=== PATIENT | female | born 1955 | race Caucasian/White ===

== ENCOUNTER 2023-02-04 12:25 | Inpatient (IN) | payer MEDICARE, MEDICAID ==
[2023-02-04] MEDS ORDERED: Dextrose 50% Abboject 50 ML SYRINGE ONE (12:49)
[2023-02-04] MEDS ORDERED: Cefepime 2 GM VIAL ONE (12:49)
[2023-02-04 13:07] LABS: Actual Bicarbonate (HCO3v) 23.5 mEq/L (22-28); Analyzer IN Cardio ER; Base Excess 1.2 mEq/L (-2.0 to +3.0); Calcium, Ionized (venous) 0.93 mmol/L (1.16-1.32); Chloride (VBG) 103 mmol/L (98-106); Hematocrit-VBG 37 % (36.0-47.0); Hemoglobin (Hb) 12.6 g/dL (11.7-16.1); Sodium 133.3 mmol/L (133-146); pH (venous) 7.509 (7.32-7.43)
[2023-02-04 13:34] LABS: Bacteria/HPF 2+ HPF (None Seen); Bilirubin Negative (Negative); Blood, Urine 2+ (Negative); CAUTI Indications for Culture Alt mental st,lethar; Clarity Turbid (Clear); Glucose, Urine (Dipstick) Normal (Negative); Ketone, Urine Negative (Negative); Leukocyte 500 Leu/uL (Negative); Nitrite Negative (Negative); Protein, Urine (Dipstick) 70 mg/dL (Neg-Trace); Specific Gravity, Urine 1.024 (1.002-1.036); Squamous Epithelial 0-3 HPF (0-3); Transitional Epithelial 0-3 HPF (None Seen); WBC/HPF Greater than 50 HPF (0-3); pH, Urine 6.5 (5.0-9.0)
[2023-02-04 13:41] LABS: Troponin I Less than 0.010 ng/mL (< 0.028)
[2023-02-04] MEDS ORDERED: Piperacillin/Tazobactam 3.375 GM VIAL ONE (13:44)
[2023-02-04 13:51] LABS: ALT (SGPT) 23 U/L (8-55); AST (SGOT) 31 U/L (5-34); Albumin 3.1 g/dL (3.4-4.8); Alkaline Phosphatase 67 U/L (40-110); Anion Gap 14 mmol/L (10-20); BUN (Urea Nitrogen) 30 mg/dL (9.8-20.1); Bilirubin, Total 0.4 mg/dL (0.2-1.2); Calc. Creatinine Clearance 0 mL/min (70-130); Carbon Dioxide 21 mmol/L (23-31); Chloride 105 mmol/L (98-107); Estimated GFR 94; Globulin 2.5 g/dL (2.4-3.5); Glucose 80 mg/dL (80-115); Lipase 4 U/L (8-78); Protein, Total 5.6 g/dL (5.8-8.1); Sodium 136 mmol/L (136-145)
[2023-02-04 14:04] LABS: SARS-CoV-2 NAA Rapid Test DETECTED (NotDetected)
[2023-02-04 14:04] LABS: Urine Culture Reflex Yes Yes
[2023-02-04] MEDS ORDERED: VANCOMYCIN 1.25 GM/250 ML BAG 1.25 GM in Premix Bag 1 BAG IVPB SCH (14:15)
[2023-02-04] MEDS ORDERED: Vancomycin 1.5 GRAM/300 ML BAG 1.5 GM in Premix Bag 1 BAG IVPB SCH (14:15)
[2023-02-04 15:11] LABS: #Monocytes 0.7 thou/uL (0.11-0.59); #Neutrophils 4.1 thou/uL (1.40-6.50); %Basophils 0.6 % (0.0-1.0); %Eosinophils 0.2 % (0.0-10.0); %Neutrophils 62.9 % (42.0-75.0); Hematocrit 33.9 % (36.0-47.0); Hemoglobin 10.8 g/dL (12.0-16.0); Mean Corpuscular HGB CONC 31.9 g/dL (32.0-36.0); Mean Corpuscular Hemoglobin 30.4 pg (27.0-31.0); Mean Corpuscular Volume 95.5 fl (78.0-98.0); Mean Platelet Volume 10.6 fL (7.4-10.4); Platelet Count 110 10x3/uL (130-400); RBC Distribution Width 13.2 % (11.5-14.5); Red Blood Cell (RBC) Count 3.55 mill/uL (4.20-5.40); White Blood Cell (WBC) Count 6.5 10x3/uL (4.8-10.8)
[2023-02-04] MEDS ORDERED: traMADol HCl 50 MG TAB PO PRN (15:12)
[2023-02-04] MEDS ORDERED: Ondansetron PF 4 MG/2 ML Vial IVP PRN ×2 (15:14→15:15)
[2023-02-04] MEDS ORDERED: Acetaminophen 650 MG Suppository PR PRN (15:14)
[2023-02-04] MEDS ORDERED: Acetaminophen 325 MG TAB PO PRN ×2 (15:14→15:15)
[2023-02-04] MEDS ORDERED: Ondansetron ODT 4 MG TAB SL PRN (15:15)
[2023-02-04] MEDS ORDERED: Dexamethasone 20 MG/5 ML VIAL SLOW IVP SCH (15:45)
[2023-02-04] MEDS ORDERED: Ascorbic Acid 500 mg Chewable Tablet PO SCH (15:45)
[2023-02-04] MEDS ORDERED: Azithromycin 500 MG in Sodium Chloride 0.9% 250 ML 250 ML IVPB SCH (17:15)
[2023-02-04] MEDS ORDERED: Dexamethasone 4 mg/ml Vial SLOW IVP SCH (17:30)
[2023-02-04 17:45] LABS: INR-International Normal Ratio 1.1; PTT 33.5 sec (22.9-36.1); Prothrombin Time 14.8 sec (12.0-14.7)
[2023-02-04] MEDS: Sodium Chloride 0.9% 1,000 ML IV SCH (18:05)
[2023-02-04] MEDS: Azithromycin 500 MG in Sodium Chloride 0.9% 250 ML 250 ML IVPB SCH (18:06)
[2023-02-04] MEDS: traMADol HCl 50 MG TAB PO SCH (18:06)
[2023-02-04] MEDS ORDERED: clonazePAM 1 MG TAB PO SCH (21:00)
[2023-02-04] MEDS ORDERED: Divalproex Sodium 125 mg Sprinkle Capsule PO SCH (21:00)
[2023-02-04] MEDS ORDERED: Haloperidol Lactate 2 MG/ML UDCUP PO SCH (21:00)
[2023-02-04] MEDS: cefTRIAXone\\ROCEPHIN 1 GM in Sodium Chloride 0.9% 100 ML IVPB SCH (21:17)
[2023-02-04] MEDS: Cholecalciferol 1,000 UNITS (25 MCG) TAB PO SCH (21:18)
[2023-02-04] MEDS: Pramipexole Di-HCl 1 MG TAB PO SCH (21:18)
[2023-02-05] MEDS: traMADol HCl 50 MG TAB PO SCH ×4 (01:02→17:16)
[2023-02-05] MEDS ORDERED: Sterile Water 10 ML VIAL FS PRN (02:45)
[2023-02-05] MEDS ORDERED: OLANZapine 10 MG VIAL IM SCH ×2 (03:00)
[2023-02-05] MEDS: Sodium Chloride 0.9% 1,000 ML IV SCH ×2 (03:19→16:19)
[2023-02-05] MEDS: Pramipexole Di-HCl 1 MG TAB PO SCH ×4 (08:09→21:11)
[2023-02-05] MEDS: Ascorbic Acid 500 mg Chewable Tablet PO SCH ×2 (08:09→08:18)
[2023-02-05] MEDS: Zinc Sulfate 220 MG CAP PO SCH ×2 (08:10→08:18)
[2023-02-05] MEDS: Dexamethasone 4 mg/ml Vial SLOW IVP SCH (08:19)
[2023-02-05 11:03] LABS: #Monocytes 0.5 thou/uL (0.11-0.59); %Basophils 0.2 % (0.0-1.0); %Lymphocytes 13.7 % (21.0-51.0); %Monocytes 9.4 % (0.0-10.0); %Neutrophils 76.3 % (42.0-75.0); Hematocrit 35.3 % (36.0-47.0); Hemoglobin 11.5 g/dL (12.0-16.0); Mean Corpuscular HGB CONC 32.6 g/dL (32.0-36.0); Mean Corpuscular Hemoglobin 30.4 pg (27.0-31.0); Mean Corpuscular Volume 93.4 fl (78.0-98.0); Mean Platelet Volume 10.9 fL (7.4-10.4); Platelet Count 112 10x3/uL (130-400); RBC Distribution Width 12.7 % (11.5-14.5); Red Blood Cell (RBC) Count 3.78 mill/uL (4.20-5.40); White Blood Cell (WBC) Count 5.2 10x3/uL (4.8-10.8)
[2023-02-05 11:52] LABS: Anion Gap 12 mmol/L (10-20); BUN (Urea Nitrogen) 12 mg/dL (9.8-20.1); Calc. Creatinine Clearance 95 mL/min (70-130); Calcium 8.7 mg/dL (7.8-10.44); Carbon Dioxide 22 mmol/L (23-31); Chloride 106 mmol/L (98-107); Estimated GFR 102; Glucose 102 mg/dL (80-115); Potassium 3.8 mmol/L (3.5-5.1); Sodium 136 mmol/L (136-145)
[2023-02-05] MEDS ORDERED: Azithromycin 500 MG in Sodium Chloride 0.9% 250 ML 250 ML IVPB SCH (14:00)
[2023-02-05] MEDS: Azithromycin 500 MG in Sodium Chloride 0.9% 250 ML 250 ML IVPB SCH (17:16)
[2023-02-05] MEDS: cefTRIAXone\\ROCEPHIN 1 GM in Sodium Chloride 0.9% 100 ML IVPB SCH (21:10)
[2023-02-05] MEDS: Cholecalciferol 1,000 UNITS (25 MCG) TAB PO SCH (21:11)
[2023-02-06] MEDS: Sodium Chloride 0.9% 1,000 ML IV SCH ×4 (01:56→17:14)
[2023-02-06] MEDS: traMADol HCl 50 MG TAB PO SCH ×5 (01:57→23:13)
[2023-02-06] MEDS: Dexamethasone 4 mg/ml Vial SLOW IVP SCH (08:21)
[2023-02-06] MEDS: Ascorbic Acid 500 mg Chewable Tablet PO SCH (08:21)
[2023-02-06] MEDS: Zinc Sulfate 220 MG CAP PO SCH (08:21)
[2023-02-06] MEDS: Pramipexole Di-HCl 1 MG TAB PO SCH ×3 (08:21→20:56)
[2023-02-06] MEDS: Azithromycin 500 MG in Sodium Chloride 0.9% 250 ML 250 ML IVPB SCH (17:13)
[2023-02-06] MEDS: cefTRIAXone\\ROCEPHIN 1 GM in Sodium Chloride 0.9% 100 ML IVPB SCH (20:56)
[2023-02-06] MEDS: Cholecalciferol 1,000 UNITS (25 MCG) TAB PO SCH (20:57)
[2023-02-07] MEDS: traMADol HCl 50 MG TAB PO SCH ×3 (05:02→18:48)
[2023-02-07] MEDS: Ascorbic Acid 500 mg Chewable Tablet PO SCH (09:00)
[2023-02-07] MEDS: Dexamethasone 4 mg/ml Vial SLOW IVP SCH (09:01)
[2023-02-07] MEDS: Zinc Sulfate 220 MG CAP PO SCH (09:01)
[2023-02-07] MEDS: Pramipexole Di-HCl 1 MG TAB PO SCH ×3 (09:01→20:52)
[2023-02-07] MEDS: Azithromycin 500 MG in Sodium Chloride 0.9% 250 ML 250 ML IVPB SCH (18:44)
[2023-02-07] MEDS: Cholecalciferol 1,000 UNITS (25 MCG) TAB PO SCH (20:52)
[2023-02-07] MEDS: cefTRIAXone\\ROCEPHIN 1 GM in Sodium Chloride 0.9% 100 ML IVPB SCH (20:53)
[2023-02-08] MEDS: traMADol HCl 50 MG TAB PO SCH ×2 (00:55→05:45)
[2023-02-08] MEDS: Sodium Chloride 0.9% 1,000 ML IV SCH (04:31)
[2023-02-08 07:26] VITALS: BP 131/76; TEMP 98.7
[2023-02-08] MEDS: Dexamethasone 4 mg/ml Vial SLOW IVP SCH (09:03)
[2023-02-08] MEDS: Zinc Sulfate 220 MG CAP PO SCH (09:03)
[2023-02-08] MEDS: Ascorbic Acid 500 mg Chewable Tablet PO SCH (09:03)
[2023-02-08] MEDS: Pramipexole Di-HCl 1 MG TAB PO SCH (09:03)
== END 2023-02-08 10:00 | DRG 689 ==
LOC: ERS 12:25 → T4-B 16:38
PROVIDERS: ADMIT Hospitalist; ATTEND Family Medicine
PROC: 0T9B70Z Drainage of Bladder with Drainage Device, Via Natural or Artificial Opening (ICD-10-PCS; principal; 2023-02-04)
DX: N39.0 Urinary tract infection, site not specified (principal); U07.1 COVID-19; G10 Huntington's disease; F32.9 Major depressive disorder, single episode, unspecified; I10 Essential (primary) hypertension; Z88.8 Allergy status to other drugs, medicaments and biological substances; Z79.899 Other long term (current) drug therapy; Z66 Do not resuscitate; G20 Parkinson's disease; F02.80 Dementia in other diseases classified elsewhere, unspecified severity, without behavioral disturbance, psychotic disturbance, mood disturbance, and anxiety; B96.4 Proteus (mirabilis) (morganii) as the cause of diseases classified elsewhere; F41.9 Anxiety disorder, unspecified
CPT/HCPCS: 36415; 36416; 51701; 71045; 80048; 81001; 82805; 83605; 83690; 83880; 84484; 85025; 85610; 85730; 87040; 87077; 87086; 87149; 87186; 93005; 96361; 96365; 96366; 96367; 96375; J0456; J0692; J0696; J1100; J2543; J3370; J3490; J7050; J7999